=== PATIENT | male | born 1990 | race Two or more races ===

== ENCOUNTER 2018-03-30 20:13 | Emergency (ER) | payer OTHER ==
[~2018-03-30] VITALS: Ht 195.6 cm; Wt 95.3 kg
[2018-03-30 20:20] VITALS: BP 154/88
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
--- NOTE | 2018-03-30 21:00 | NUR ---
ER PA AT BEDSIDE FOR EVALUATION
[2018-03-30] MEDS ORDERED: LORAZEPAM 1 MG TABLET PO ONE (21:30)
[2018-03-30] MEDS ORDERED: ACETAMINOPHEN 650 MG/20.3 ML UDC PO ONE (21:30)
[2018-03-30] MEDS ORDERED: LORAZEPAM 1 MG TABLET ONE (21:38)
[2018-03-30] MEDS ORDERED: ACETAMINOPHEN 325 MG TABLET ONE (21:38)
== END 2018-03-30 22:11 | disposition home or self-care (01) ==
LOC: ER 20:15
DX: F41.9 Anxiety disorder, unspecified (principal); G44.209 Tension-type headache, unspecified, not intractable; F10.10 Alcohol abuse, uncomplicated; Y90.9 Presence of alcohol in blood, level not specified; Z60.2 Problems related to living alone; V49.59XA Passenger injured in collision with other motor vehicles in traffic accident, initial encounter; Y93.89 Activity, other specified; Y92.410 Unspecified street and highway as the place of occurrence of the external cause; Y99.8 Other external cause status
CPT/HCPCS: 99284; A4606; Z7610